=== PATIENT | female | born 1935 | race Caucasian/White ===

== ENCOUNTER 2019-07-04 14:23 | Emergency (ER) | payer MEDICARE, OTHER ==
[~2019-07-04] VITALS: Ht 152.4 cm; Wt 72.7 kg
[~2019-07-04 14:23] MED LIST: ASPI81TA52 PO; ATOR10TA PO; FAMO-128 PO; LACT1CAP57 PO; NAPR220C15 PO
[2019-07-04 14:28] VITALS: BP 167/86
[2019-07-04] MEDS ORDERED: TRAM50TA2 PO (15:22)
== END 2019-07-04 15:40 | disposition home or self-care (01) ==
LOC: ER 14:24
DX: S42.295A Other nondisplaced fracture of upper end of left humerus, initial encounter for closed fracture (principal); Z79.82 Long term (current) use of aspirin; Z79.899 Other long term (current) drug therapy; Z86.73 Personal history of transient ischemic attack (TIA), and cerebral infarction without residual deficits; W18.09XA Striking against other object with subsequent fall, initial encounter; Y93.89 Activity, other specified; Y92.89 Other specified places as the place of occurrence of the external cause; Y99.8 Other external cause status
CPT/HCPCS: 29105; 73060; 99284

== ENCOUNTER 2019-09-08 16:35 | Emergency (ER) | payer MEDICARE, OTHER ==
[~2019-09-08] VITALS: Ht 149.9 cm; Wt 72.7 kg
[2019-09-08] MEDS ORDERED: acetaminophen 325mg tablet PO ONE (17:45)
--- NOTE | 2019-09-08 18:19 | NUR ---
spoke with provider about pt elevated BP. provider ok for pt to go to xray without monitoring. Labs ordered. No meds ordered for elevated BP.
[2019-09-08 18:52] LABS: BASOPHILS % (AUTO) 0.2 % (0-1); EOSINOPHILS % (AUTO) 0.4 % (0-6); HEMATOCRIT 39.7 % (35.0-45.0); HEMOGLOBIN 13.3 g/dl (12.0-16.0); LYMPHOCYTES # (AUTO) 1.7 X10'3 (1.1-4.8); LYMPHOCYTES % (AUTO) 17.8 % (21-51); MEAN CORPUSCULAR HEMOGLOBIN 31.7 PG (27.0-31.0); MEAN CORPUSCULAR HGB CONC 33.5 g/dL (33.0-36.5); MEAN CORPUSCULAR VOLUME 94.7 FL (78-98); MEAN PLATELET VOLUME 7.2 FL (7.4-10.4); MONOCYTES # (AUTO) 0.8 X10'3 (0-0.9); MONOCYTES % (AUTO) 8.2 % (2-12); NEUTROPHILS # (AUTO) 6.8 X10'3 (1.8-7.7); NEUTROPHILS % (AUTO) 73.4 % (42-75); PLATELET COUNT 295 X10'3 (140-440); RED BLOOD COUNT 4.19 X10'6 (4.20-5.60); RED CELL DISTRIBUTION WIDTH 13.2 % (11.5-14.5); WHITE BLOOD COUNT 9.3 X10'3 (4.5-11.0)
[2019-09-08 19:04] LABS: ALANINE AMINOTRANSFERASE 21 U/L (12-78); ALBUMIN/GLOBULIN RATIO 0.9 (1.1-1.5); ALKALINE PHOSPHATASE 88 IU/L (46-116); ANION GAP 9 (8-16); ASPARTATE AMINO TRANSFERASE 19 U/L (10-37); BILIRUBIN,TOTAL 0.8 MG/DL (0.1-1.0); BLOOD UREA NITROGEN 27 MG/DL (7-18); BUN/CREATININE RATIO 19.4 (6.6-38.0); CALCIUM 10.7 MG/DL (8.5-10.1); CHLORIDE 97 MMOL/L (99-107); CREATININE 1.39 MG/DL (0.40-0.90); GLUCOSE 130 MG/DL (70-104); POTASSIUM 3.6 MMOL/L (3.5-5.1); SODIUM 136 MMOL/L (135-145); TOTAL CARBON DIOXIDE 30.4 MMOL/L (24-32); TOTAL PROTEIN 8.5 G/DL (6.4-8.2); eGFR 36 ML/MIN
[2019-09-08 19:07] LABS: TROPONIN I < 0.04 NG/ML (0.0-0.05)
[2019-09-08] MEDS ORDERED: HYDR-3965 PO (20:14)
[2019-09-08 20:38] VITALS: BP 173/110
== END 2019-09-08 20:39 | disposition home or self-care (01) ==
LOC: ER 16:36
DX: S80.01XA Contusion of right knee, initial encounter (principal); M54.31 Sciatica, right side; I16.0 Hypertensive urgency; M25.551 Pain in right hip; Z85.3 Personal history of malignant neoplasm of breast; Z90.710 Acquired absence of both cervix and uterus; Z79.82 Long term (current) use of aspirin; Z79.899 Other long term (current) drug therapy; W18.30XA Fall on same level, unspecified, initial encounter; Y93.89 Activity, other specified; Y92.091 Bathroom in other non-institutional residence as the place of occurrence of the external cause; Y99.9 Unspecified external cause status
CPT/HCPCS: 36415; 73502; 73564; 80053; 84484; 85025; 93005; 99284

== ENCOUNTER 2019-09-19 14:38 | Emergency (ER) | payer MEDICARE, OTHER ==
[~2019-09-19] VITALS: Ht 152.4 cm; Wt 72.7 kg
[~2019-09-19 14:38] MED LIST changes: +HYDR-3965 PO
[2019-09-19] MEDS: bisacodyl 10mg suppository rectal RC STA ×2 (16:37→17:20)
[2019-09-19] MEDS: ondansetron/PF 4mg/2ml inj IV ONE ×2 (16:40→17:19)
[2019-09-19] MEDS ORDERED: normal saline 1000ML IV soln IVB ONE ×2 (16:40)
[2019-09-19] MEDS ORDERED: lactulose 20gm/30ml cup PO ONE (16:40)
[2019-09-19] MEDS: methylnaltrexone br 12mg/0.6ml inj***SubQ only SQ ONE ×2 (16:40→17:20)
[2019-09-19 16:43] LABS: BASOPHILS % (AUTO) 0.2 % (0-1); EOSINOPHILS % (AUTO) 0.2 % (0-6); HEMATOCRIT 40.5 % (35.0-45.0); HEMOGLOBIN 13.6 g/dl (12.0-16.0); LYMPHOCYTES # (AUTO) 1.6 X10'3 (1.1-4.8); LYMPHOCYTES % (AUTO) 9.8 % (21-51); MEAN CORPUSCULAR HEMOGLOBIN 31.9 PG (27.0-31.0); MEAN CORPUSCULAR HGB CONC 33.7 g/dL (33.0-36.5); MEAN CORPUSCULAR VOLUME 94.5 FL (78-98); MONOCYTES # (AUTO) 1.4 X10'3 (0-0.9); MONOCYTES % (AUTO) 8.6 % (2-12); NEUTROPHILS # (AUTO) 12.8 X10'3 (1.8-7.7); NEUTROPHILS % (AUTO) 81.2 % (42-75); PLATELET COUNT 345 X10'3 (140-440); RED BLOOD COUNT 4.28 X10'6 (4.20-5.60); RED CELL DISTRIBUTION WIDTH 13.3 % (11.5-14.5); WHITE BLOOD COUNT 15.8 X10'3 (4.5-11.0)
[2019-09-19 16:58] LABS: ALANINE AMINOTRANSFERASE 23 U/L (12-78); ALBUMIN 3.8 G/DL (3.4-5.0); ALBUMIN/GLOBULIN RATIO 0.8 (1.1-1.5); ALKALINE PHOSPHATASE 102 IU/L (46-116); ANION GAP 12 (8-16); ASPARTATE AMINO TRANSFERASE 15 U/L (10-37); BILIRUBIN,TOTAL 1.3 MG/DL (0.1-1.0); BLOOD UREA NITROGEN 29 MG/DL (7-18); BUN/CREATININE RATIO 21.6 (6.6-38.0); CALCIUM 10.4 MG/DL (8.5-10.1); CHLORIDE 96 MMOL/L (99-107); CREATININE 1.34 MG/DL (0.40-0.90); GLUCOSE 125 MG/DL (70-104); POTASSIUM 3.5 MMOL/L (3.5-5.1); SODIUM 137 MMOL/L (135-145); TOTAL CARBON DIOXIDE 29.3 MMOL/L (24-32); TOTAL PROTEIN 8.7 G/DL (6.4-8.2); eGFR 38 ML/MIN
--- NOTE | 2019-09-19 17:50 | NUR ---
SEBASTIEN PANCHAL MADE AWARE OF SEVERAL IV ATTEMPTS WITH NO SUCCESS. PATIENT FOUND TO HAVE LIQUID STOOL WHEN STRAIGHT CATHETERIZATION WAS DONE FOR URINE SAMPLE, PER MD HOLD CONSTIPATION MEDICATION (SEE EMAR), PROVIDER MADE AWARE PATIENT REFUSING NAUSEA MEDICATION AT THIS TIME. PATIENT ENCOURAGED TO DRINK WATER PO, PATIENT STATES SHE IS ABLE TO TOLERATED LIQUIDS, AT BEDSIDE, ALL SAFETY MEASURES IN PLACE, HYGIENE PROVIDED.
[2019-09-19 18:01] LABS: CLARITY,URINE SLIGHTLY CLOUDY (Clear); COLOR,URINE YELLOW (Yellow); GLUCOSE, URINE NEGATIVE (Neg); KETONES,URINE TRACE mg/dl (Neg); LEUKOCYTE ESTERASE ,URINE NEGATIVE (Neg); NITRITES, URINE NEGATIVE (Neg); OCCULT BLOOD,URINE NEGATIVE (Neg); PROTEIN,URINE NEGATIVE (Neg); UROBILINOGEN,URINE 0.2 E.U/dL (0.2-1.0)
[2019-09-19 18:02] LABS: UA COLLECTION TYPE STRAIGHT CATH
[2019-09-19 18:06] LABS: HYALINE CASTS 0-3 /LPF (NEGATIVE); SQUAMOUS EPITHELIAL CELL,UR MODERATE /LPF (FEW)
[2019-09-19 18:07] LABS: BACTERIA,URINE FEW /HPF (Neg); MUCUS STRANDS FEW /LPF (Neg); RBC,URINE 0-2 /HPF (0-2); TRANSITIONAL EPI CELLS,URINE FEW /HPF; WBC,URINE 0-4 /HPF (0-4)
--- NOTE | 2019-09-19 18:25 | NUR ---
PT DRANK 1000 ML OF WATER.
[2019-09-19 19:03] VITALS: BP 166/91
== END 2019-09-19 19:08 | disposition home or self-care (01) ==
LOC: ER 14:39
DX: A08.4 Viral intestinal infection, unspecified (principal); R19.7 Diarrhea, unspecified; Z79.82 Long term (current) use of aspirin; Z79.899 Other long term (current) drug therapy; Z90.710 Acquired absence of both cervix and uterus; Z86.73 Personal history of transient ischemic attack (TIA), and cerebral infarction without residual deficits; Z90.12 Acquired absence of left breast and nipple
CPT/HCPCS: 36415; 74018; 80053; 81001; 85025; 96360; 99284; J2212; J2405; J7030; P9612

== ENCOUNTER → 2023-10-17 | Emergency (ER) | payer MEDICARE, OTHER ==
[~2023-10-17] VITALS: Ht 149.9 cm; Wt 53.6 kg
[~2023-10-17] MED LIST changes: +AMLO2.5T5 PO; +AMLO5TAB16 PO; +APIX2.5T PO; -ASPI81TA52 PO; -ATOR10TA PO; +ATOR10TA70 PO; +DOCU100C40 PO; -FAMO-128 PO; +FERR-39 PO; +FURO40TA4 PO; -HYDR-3965 PO; -LACT1CAP57 PO; +MAGN400T29 PO; +METO-395 PO; -NAPR220C15 PO; +NIRM1TAB5 PO; +PANT40TA54 PO; +POTA-207 PO; +TRAM50TA2 PO
[2023-10-17 14:38] VITALS: BP 124/47; PULSE 83; RESP 18; TEMP 98.3; O2SAT 96
--- NOTE | 2023-10-17 15:57 | NUR ---
PRESCRIPTION WAS NOT AVAILABLE AT [facility], SO MEDICATION WAS ORDERED AT [facility]. PATIENT'S SON, YOLANDA WILL BE PICKING UP THE MEDICATION FOR THE PATIENT.
== END | disposition home or self-care (01) ==
LOC: ER 12:47
DX: U07.1 COVID-19 (principal); K21.9 Gastro-esophageal reflux disease without esophagitis; G89.29 Other chronic pain; M54.9 Dorsalgia, unspecified; Z90.49 Acquired absence of other specified parts of digestive tract; Z98.890 Other specified postprocedural states
CPT/HCPCS: 36415; 87502; 87503; 87811; 99283

== ENCOUNTER 2024-01-24 12:51 | Emergency (ER) | payer MEDICARE, OTHER ==
[~2024-01-24] VITALS: Ht 144.8 cm; Wt 49.7 kg
[2024-01-24 13:26] VITALS: BP 114/37; PULSE 90; RESP 14; TEMP 98.7; O2SAT 97
== END 2024-01-24 20:06 | disposition left against medical advice (07) ==
LOC: ER 12:51
DX: R63.0 Anorexia (principal); R05.9 Cough, unspecified; Z53.21 Procedure and treatment not carried out due to patient leaving prior to being seen by health care provider
CPT/HCPCS: 99281